=== PATIENT | male | born 1960 | race African-American/Black ===

== ENCOUNTER 2017-07-11 16:07 | Emergency (ER) | payer OTHER, SELFPAY ==
[~2017-07-11] VITALS: Ht 172.7 cm; Wt 79.5 kg
[~2017-07-11 16:07] MED LIST: NOCURR
[2017-07-11 18:38] VITALS: BP 139/86
== END 2017-07-11 18:54 | disposition home or self-care (01) ==
LOC: EMS 16:09
DX: M54.5 Low back pain (principal)
CPT/HCPCS: 72100; 99284